=== PATIENT | female | born 1970 ===

== ENCOUNTER 2016-10-12 14:37 | Emergency (ER) | payer MEDICAID, OTHER ==
[2016-10-12 14:41] VITALS: BMI 30.9
[2016-10-12 14:48] VITALS: BP 117/80; PULSE 95; RESP 19; TEMP 98.5; O2SAT 98
--- NOTE | 2016-10-12 15:46 | ED PDOC ---
Arrival/HPI - General Historian: Patient - History of Present Illness Time/Duration: Other (eeks) Quality: Aching Context: Home - General Chief Complaint: Back Pain Time Seen by Provider: 10/12/16 14:49 - History of Present Illness Narrative History of Present Illness (Text): 10/12/16 14:53 This 46 yo female with pmh chronic back pain, presents to this ED c/o left lower back pain x 2 weeks. Patient stated she help lift a family member, which caused the back pain. Patient denies sob, cp, fever, abdominal pain, GI/ incontinence, saddle anesthesias, urinary retention, weakness, paresthesias, or abnormal gait. (Chet Wallace) Past Medical History - Provider Review Nursing Documentation Reviewed: Yes - Infectious Disease Hx of Infectious Diseases: None - Hematological/Oncological Hx Blood Disorders: No - Musculoskeletal/Rheumatological Hx Musculoskeletal Disorders: Yes Hx Back Pain: Yes - Psychiatric Hx Substance Use: No - Surgical History Hx Cholecystectomy: Yes Hx Hysterectomy: Yes Other/Comment: elbow surgery (r) - Anesthesia Hx Anesthesia: Yes Hx Anesthesia Reactions: No Family/Social History - Physician Review Nursing Documentation Reviewed: Yes Family/Social History: No Known Family HX Smoking Status: Never Smoked Hx Alcohol Use: No Hx Substance Use: No Allergies/Home Meds Allergies/Adverse Reactions: Allergies No Known Allergies Allergy (Verified 10/12/16 14:41) Home Medications: Home Meds Medication Instructions Recorded Confirmed traMADol [Ultram] 50 mg PO PRN PRN 10/12/16 10/12/16 Review of Systems - Review of Systems Constitutional: Normal. absent: Fatigue, Weight Change, Fevers Eyes: Normal ENT: Normal Respiratory: Normal Cardiovascular: Normal Gastrointestinal: Normal Genitourinary Female: Normal. absent: Dysuria, Frequency, Hematuria, Vaginal Bleeding, Vaginal Discharge Musculoskeletal: Back Pain Skin: Normal Neurological: Normal Endocrine: Normal Hemo/Lymphatic: Normal Psychiatric: Normal Physical Exam Temperature: Afebrile Blood Pressure: Normal Pulse: Regular Respiratory Rate: Normal Appearance: Positive for: Well-Appearing, Non-Toxic, Comfortable Pain Distress: None Mental Status: Positive for: Alert and Oriented X 3 - Systems Exam Head: Present: Atraumatic, Normocephalic Pupils: Present: PERRL Extroacular Muscles: Present: EOMI Conjunctiva: Present: Normal Mouth: Present: Moist Mucous Membranes Neck: Present: Normal Range of Motion Respiratory/Chest: Present: Clear to Auscultation, Good Air Exchange. No: Respiratory Distress, Accessory Muscle Use Cardiovascular: Present: Regular Rate and Rhythm, Normal S1, S2. No: Murmurs Abdomen: Present: Normal Bowel Sounds. No: Tenderness, Distention, Peritoneal Signs Back: Present: Normal Inspection, Paraspinal Tenderness (Mild left paravertebral tenderness). No: CVA Tenderness, Midline Tenderness Upper Extremity: Present: Normal Inspection, Normal ROM, NORMAL PULSES, Neurovascularly Intact, Capillary Refill < 2s. No: Cyanosis, Edema Lower Extremity: Present: Normal Inspection, Normal ROM, Capillary Refill < 2 s. No: Edema Neurological: Present: GCS=15, CN II-XII Intact, Speech Normal, Motor Func Grossly Intact, Normal Sensory Function, Normal Cerebellar Funct, Norm Deep Tendon Reflexes Skin: Present: Warm, Dry, Normal Color. No: Rashes Psychiatric: Present: Alert, Oriented x 3, Normal Insight, Normal Concentration Medical Decision Making Re-evaluation Time: 15:48 Reassessment Condition: Re-examined, Improved ED Course and Treatment: 10/12/16 15:48 Re-evaluation. Patient feels better. Discussed results and plan with patient who expresses understanding. All questions answered and there is agreement with the plan to discharge home with instructions. Patient stable for discharge. Return if symptoms persist or worsen. (Chet Wallace) 10/13/16 11:44 I was available for consultation during PA evaluation. The chart reviewed by me , and I agree with disposition. The documented history was done by the physician bridal service sales and management. The documented physical exam was done by physician bridal service sales and management. The documented procedures were done by physician bridal service sales and management. (Daniel Funk) - Medication Orders Current Medication Orders: Discontinued Medications Cyclobenzaprine HCl (Flexeril) 10 mg PO STAT STA Stop: 10/12/16 14:55 Last Admin: 10/12/16 15:08 Dose: 10 mg Ketorolac Tromethamine (Toradol) 30 mg IM STAT STA Stop: 10/12/16 14:51 Last Admin: 10/12/16 15:08 Dose: 30 mg Disposition/Present on Arrival - Present on Arrival Any Indicators Present on Arrival: No History of DVT/PE: No History of Uncontrolled Diabetes: No Urinary Catheter: No History of Decub. Ulcer: No History Surgical Site Infection Following: None - Disposition Have Diagnosis and Disposition been Completed?: Yes Disposition Time: 15:49 - Disposition Diagnosis: Chronic back pain Disposition: HOME/ ROUTINE Condition: IMPROVED Discharge Instructions (ExitCare): Chronic Back Pain (ED) Additional Instructions: Call private doctor for follow up visit in 1-2 days. Consider pain management doctor. Return to emergency if symptoms worsen Prescriptions: Methocarbamol [Robaxin-750] 750 mg PO TID #21 tab Naproxen 500 mg PO BID PRN #20 tab PRN Reason: Pain, Severe (8-10) oxyCODONE/Acetaminophen [Percocet 5/325 mg Tab] 1 ea PO BID PRN #5 tab PRN Reason: Pain, Severe (8-10) Referrals: Pravin Zaman DO [Primary Care Provider] - Follow up with primary Teddy Brumfield MD [Staff Provider] - Follow up with primary
== END 2016-10-12 15:59 | disposition home or self-care (01) ==
LOC: ED 14:37
DX: G89.29 Other chronic pain (principal); M54.5 Low back pain
CPT/HCPCS: 96372; 99283; J1885